=== PATIENT | female | born 1940 | race Caucasian/White ===

== ENCOUNTER 2018-11-13 11:32 | Emergency (ER) | payer MEDICARE, MEDICAID ==
[~2018-11-13] VITALS: Ht 152.4 cm; Wt 72.7 kg
[2018-11-13] MEDS ORDERED: GABA-845 PO (11:47)
[2018-11-13] MEDS ORDERED: OMEP40CA2 PO (11:47)
--- NOTE | 2018-11-13 12:14 | REP ---
Clinical: Syncope/near-syncopal episode. Comparison: None . Findings: The mediastinum and cardiac silhouette are stable and within normal limits for portable technique. The lung woods are clear without acute consolidation, effusion, or pneumothorax. Skeletal structures are intact. Impression: No acute cardiopulmonary process appreciated. Electronically Signed by Rebel Monae MD 11/13/2018 12:05 P
[2018-11-13 12:33] LABS: BASO # 0.1 10^3/uL (0.0-0.2); BASO % 0.4 % (0.0-1.0); EOS # 0.1 10^3/uL (0.0-0.5); HEMATOCRIT 33.8 % (36.0-47.0); HEMOGLOBIN 10.5 g/dl (12.0-15.5); LYMPH # 2.9 10^3/uL (1.5-5.0); LYMPH % 21.5 % (24.0-44.0); MEAN CORPUSCULAR HEMOGLOBIN 28.2 pg (27.0-33.0); MEAN CORPUSCULAR HGB CONC 31.1 g/dl (32.0-36.5); MEAN CORPUSCULAR VOLUME 90.6 fl (80.0-96.0); MONO # 0.9 10^3/uL (0.0-0.8); MONO % 6.4 % (0.0-5.0); NEUTROPHILS # 9.4 10^3/uL (1.5-8.5); NEUTROPHILS % 70.3 % (36.0-66.0); PLATELET COUNT, AUTOMATED 360 10^3/uL (150-450); RED BLOOD COUNT 3.73 10^6/uL (4.00-5.40); WHITE BLOOD COUNT 13.4 10^3/uL (4.0-10.0)
[2018-11-13 13:00] LABS: BLOOD UREA NITROGEN 13 MG/DL (7-18); CALCIUM LEVEL 8.8 MG/DL (8.8-10.2); CARBON DIOXIDE LEVEL 27 MEQ/L (21-32); CHLORIDE LEVEL 106 MEQ/L (98-107); CK-MB VALUE MASS < 1.0 NG/ML (<3.6); CPK CREATINE PHOSPHOKINASE 61 U/L (26-192); CREATININE FOR GFR 1.27 MG/DL (0.55-1.30); FREE T4 1.05 NG/DL (0.76-1.46); GLOMERULAR FILTRATION RATE 43.6 (>39); GLUCOSE, FASTING 104 MG/DL (70-100); MB/CK RELATIVE INDEX 1.64 (< OR =4); POTASSIUM SERUM 4.2 MEQ/L (3.5-5.1); SODIUM LEVEL 140 MEQ/L (136-145); TROPONIN I < 0.02 NG/ML (< 0.10)
[2018-11-13 13:15] VITALS: BP 106/53
--- NOTE | 2018-11-13 19:29 | ECGEPIP ---
[facility] - ED Test Date: 2018-11-13 Pat Name: CELE GRIER Department: Room: - Gender: Female [employer] Re[employer] Operator: : [id number] Requested By: Tabitha Díaz Order Number: [id number] Reading MD: Bruce Santana Measurements Intervals [place] Rate: 63 P: 23 [place]: 141 QRS: -4 QRSD: 81 T: 44 QT: 399 QTc: 411 Interpretive Statements SINUS RHYTHM NSTTW ABNORMALITIES NO PRIORS FOR COMPARISON Electronically Signed on 11-13-2018 19:29:25 EDT by Bruce Santana
== END 2018-11-13 14:06 | disposition left against medical advice (07) ==
LOC: EDBD 11:32 → M ED 11:32
DX: R55 Syncope and collapse (principal); I10 Essential (primary) hypertension; K21.9 Gastro-esophageal reflux disease without esophagitis; Z91.040 Latex allergy status; Z79.899 Other long term (current) drug therapy

== ENCOUNTER → 2021-02-20 | Outpatient (REF) | payer MEDICARE, MEDICAID ==
[~2021-02-20] MED LIST: ACET1TAB55 PO; ASPI81TA26 PO; ATOR1TAB19 PO; COLA100C5 PO; CVS1CHW13 PO; DICL5SOL3 TOP; DULO1CAP6 PO; ELIQ2.5T PO; ELIQ5TAB PO; GABA-283 PO; GABA600T4 PO; HYDR12.55 PO; LACT20EL PO; MECL1TAB31 PO; MIDO5TA PO; NEUR300C PO; OMEP-173 PO; OMEP40CA4 PO; ONDA-83 PO
== END ==
LOC: M LAB REF 15:46
PROVIDERS: ATTEND Specialist
DX: K59.00 Constipation, unspecified (principal); K62.5 Hemorrhage of anus and rectum; Z86.73 Personal history of transient ischemic attack (TIA), and cerebral infarction without residual deficits; Z86.711 Personal history of pulmonary embolism

== ENCOUNTER 2021-03-12 12:10 | Inpatient (IN) | payer MEDICARE, MEDICAID ==
[~2021-03-12] VITALS: Ht 221 cm; Wt 70.4 kg
[~2021-03-12 12:10] MED LIST changes: -CVS1CHW13 PO; -DICL5SOL3 TOP; -ELIQ2.5T PO; -GABA600T4 PO; -LACT20EL PO; -MECL1TAB31 PO; -MIDO5TA PO
[2021-03-12] MEDS ORDERED: NS 500 ML IV ONE (12:30)
[2021-03-12 12:42] LABS: BASO # 0.1 10^3/uL (0.0-0.2); BASO % 0.3 % (0.0-1.0); EOS # 0.1 10^3/uL (0.0-0.5); EOS % 0.3 % (0.0-3.0); HEMATOCRIT 35.3 % (36.0-47.0); HEMOGLOBIN 11.4 g/dl (12.0-15.5); LYMPH # 4.3 10^3/uL (1.5-5.0); LYMPH % 25.8 % (24.0-44.0); MEAN CORPUSCULAR HEMOGLOBIN 28.1 pg (27.0-33.0); MEAN CORPUSCULAR HGB CONC 32.3 g/dl (32.0-36.5); MEAN CORPUSCULAR VOLUME 86.9 fl (80.0-96.0); MONO # 0.9 10^3/uL (0.0-0.8); MONO % 5.5 % (2.0-8.0); NEUTROPHILS # 11.3 10^3/uL (1.5-8.5); NEUTROPHILS % 67.6 % (36.0-66.0); PLATELET COUNT, AUTOMATED 491 10^3/uL (150-450); RED BLOOD COUNT 4.06 10^6/uL (4.00-5.40); WHITE BLOOD COUNT 16.8 10^3/uL (4.0-10.0)
[2021-03-12] MEDS ORDERED: ISOVUE-370 76% 100ML VIAL As Ordered ONE (12:57)
[2021-03-12 13:06] LABS: INR 1.77; PROTHROMBIN TIME 21.1 SECONDS (12.7-14.5)
[2021-03-12 13:07] LABS: PARTIAL THROMBOPLASTIN TIME 49.7 SECONDS (25.9-37.0)
[2021-03-12] MEDS ORDERED: LIDOCAINE 2% 5ML JELLY UROJET TOP ONE (13:25)
[2021-03-12 13:29] LABS: BILIRUBIN,DIRECT 0.2 MG/DL (0.0-0.2); BILIRUBIN,TOTAL 0.5 MG/DL (0.2-1.0); CALCIUM LEVEL 8.6 MG/DL (8.8-10.2); CREATININE FOR GFR 1.25 MG/DL (0.55-1.30); FREE T4 1.31 NG/DL (0.76-1.46); POTASSIUM SERUM 2.7 MEQ/L (3.5-5.1); THYROID STIMULATING HORMONE 5.11 uIU/ML (0.358-3.740); TOTAL PROTEIN 7.6 GM/DL (6.4-8.2)
[2021-03-12] MEDS ORDERED: KCL 10MEQ/100ML SWI (KRUN) 10 MEQ in IV 1 EA IV ONE (13:30)
[2021-03-12] MEDS ORDERED: POTASSIUM CHLORIDE 10MEQ SR TABLET PO ONE (13:30)
[2021-03-12 13:40] LABS: MAGNESIUM LEVEL 1.3 MG/DL (1.8-2.4)
[2021-03-12 14:14] LABS: RSV AMPLIFICATION NEGATIVE (NEGATIVE)
[2021-03-12] MEDS ORDERED: MAG SULF 1GM/100ML (MAG RUN) 1 GM in IV 1 EA IV ONE ×2 (14:15→15:25)
[2021-03-12] MEDS ORDERED: ELIQ5TAB PO (15:31)
[2021-03-12] MEDS ORDERED: CVS1CHW13 PO (15:32)
[2021-03-12] MEDS ORDERED: HOME MED LIST COMPLETE! XX SCH (15:40)
[2021-03-12] MEDS ORDERED: **NOTE PATIENT COMMENT** MISC XX SCH (15:45)
[2021-03-12 21:37] LABS: CK-MB VALUE MASS < 1.0 NG/ML (<3.6); CPK CREATINE PHOSPHOKINASE 60 U/L (26-192); MB/CK RELATIVE INDEX 1.67 (< OR =4)
[2021-03-12] MEDS: APIXABAN 5 MG TAB (ELIQUIS) PO SCH (21:59)
[2021-03-12] MEDS: KCL 20MEQ IN D5/NS 1000ML 1,000 ML IV SCH (22:00)
[2021-03-13 06:24] LABS: HEMATOCRIT 29.9 % (36.0-47.0); HEMOGLOBIN 9.6 g/dl (12.0-15.5); MEAN CORPUSCULAR HEMOGLOBIN 28.4 pg (27.0-33.0); MEAN CORPUSCULAR HGB CONC 32.1 g/dl (32.0-36.5); MEAN CORPUSCULAR VOLUME 88.5 fl (80.0-96.0); PLATELET COUNT, AUTOMATED 400 10^3/uL (150-450); RED BLOOD COUNT 3.38 10^6/uL (4.00-5.40); WHITE BLOOD COUNT 9.3 10^3/uL (4.0-10.0)
[2021-03-13 06:48] LABS: CK-MB VALUE MASS 1.1 NG/ML (<3.6); MB/CK RELATIVE INDEX 1.93 (< OR =4)
[2021-03-13 07:08] LABS: ALBUMIN 2.5 GM/DL (3.2-5.2); ALT/SGPT 9 U/L (12-78); BILIRUBIN,TOTAL 0.5 MG/DL (0.2-1.0); BLOOD UREA NITROGEN 11 MG/DL (7-18); CALCIUM LEVEL 8.4 MG/DL (8.8-10.2); CARBON DIOXIDE LEVEL 25 MEQ/L (21-32); CHLORIDE LEVEL 101 MEQ/L (98-107); CREATININE FOR GFR 0.84 MG/DL (0.55-1.30); GLOMERULAR FILTRATION RATE > 60.0 (>39); GLUCOSE, FASTING 124 MG/DL (70-100); POTASSIUM SERUM 3.3 MEQ/L (3.5-5.1); SODIUM LEVEL 137 MEQ/L (136-145); TOTAL PROTEIN 6.6 GM/DL (6.4-8.2)
[2021-03-13] MEDS: KCL 20MEQ IN D5/NS 1000ML 1,000 ML IV SCH ×2 (07:25→16:25)
[2021-03-13] MEDS ORDERED: ELIQ5TAB PO (08:10)
[2021-03-13] MEDS ORDERED: LACT20EL PO (08:16)
[2021-03-13] MEDS: APIXABAN 5 MG TAB (ELIQUIS) PO SCH ×2 (09:00→19:50)
[2021-03-13] MEDS ORDERED: DULoxetine 30MG CAPSULE (CYMBALTA) PO SCH (09:00)
[2021-03-13] MEDS: OMEPRAZOLE 20 MG CAP PO SCH (09:00)
[2021-03-13] MEDS: ATORVASTATIN 10 MG TAB PO SCH (09:00)
[2021-03-13] MEDS ORDERED: POTASSIUM CHLORIDE 10MEQ SR TABLET PO ONE (10:00)
[2021-03-13 14:10] VITALS: BP 143/85
[2021-03-13 20:00] VITALS: BP 105/60
[2021-03-14] VITALS: BP 115/58
[2021-03-14] MEDS: KCL 20MEQ IN D5/NS 1000ML 1,000 ML IV SCH (00:17)
[2021-03-14 04:00] VITALS: BP 128/58
[2021-03-14 05:46] LABS: HEMATOCRIT 29.7 % (36.0-47.0); HEMOGLOBIN 9.1 g/dl (12.0-15.5); MEAN CORPUSCULAR HEMOGLOBIN 27.7 pg (27.0-33.0); MEAN CORPUSCULAR HGB CONC 30.6 g/dl (32.0-36.5); MEAN CORPUSCULAR VOLUME 90.3 fl (80.0-96.0); PLATELET COUNT, AUTOMATED 390 10^3/uL (150-450); RED BLOOD COUNT 3.29 10^6/uL (4.00-5.40); WHITE BLOOD COUNT 7.3 10^3/uL (4.0-10.0)
[2021-03-14 06:13] LABS: ALBUMIN 2.2 GM/DL (3.2-5.2); ALT/SGPT 11 U/L (12-78); BILIRUBIN,TOTAL 0.4 MG/DL (0.2-1.0); BLOOD UREA NITROGEN 5 MG/DL (7-18); CALCIUM LEVEL 8.2 MG/DL (8.8-10.2); CARBON DIOXIDE LEVEL 24 MEQ/L (21-32); CHLORIDE LEVEL 111 MEQ/L (98-107); CREATININE FOR GFR 0.81 MG/DL (0.55-1.30); GLOMERULAR FILTRATION RATE > 60.0 (>39); GLUCOSE, FASTING 111 MG/DL (70-100); MAGNESIUM LEVEL 1.5 MG/DL (1.8-2.4); POTASSIUM SERUM 3.9 MEQ/L (3.5-5.1); SODIUM LEVEL 142 MEQ/L (136-145)
[2021-03-14 07:56] VITALS: BP_SYST 133; BP_SYST 153; BP_DIAS 59; BP_DIAS 62; BP_DIAS 68
[2021-03-14 08:00] VITALS: BP 143/86
[2021-03-14] MEDS ORDERED: MAG SULF 1GM/100ML (MAG RUN) 1 GM in IV 1 EA IV ONE (08:00)
[2021-03-14] MEDS: ATORVASTATIN 10 MG TAB PO SCH (08:10)
[2021-03-14] MEDS: APIXABAN 5 MG TAB (ELIQUIS) PO SCH (08:10)
[2021-03-14] MEDS: OMEPRAZOLE 20 MG CAP PO SCH (08:17)
== END 2021-03-14 11:04 | disposition home or self-care (01) | DRG 312 ==
LOC: M ED 12:10 → M ED INP 12:11 → OBSVTOIN 03-13 09:06 → ENRESERV 03-13 11:45 → M PCU 03-13 13:58
PROVIDERS: ADMIT Family Medicine; ATTEND Family Medicine
DX: I95.1 Orthostatic hypotension (principal); E78.5 Hyperlipidemia, unspecified; E87.6 Hypokalemia; E83.42 Hypomagnesemia; Z79.01 Long term (current) use of anticoagulants; Z79.899 Other long term (current) drug therapy; Z86.711 Personal history of pulmonary embolism; R94.31 Abnormal electrocardiogram [ECG] [EKG]; R63.4 Abnormal weight loss; F32.A Depression, unspecified; R63.8 Other symptoms and signs concerning food and fluid intake; Z86.73 Personal history of transient ischemic attack (TIA), and cerebral infarction without residual deficits

== ENCOUNTER → 2021-04-30 | Outpatient (CLI) | payer MEDICARE, MEDICAID ==
[~2021-04-30] MED LIST changes: +CVS1CHW13 PO; +DICL5SOL3 TOP; +ELIQ2.5T PO; +GABA600T4 PO; +LACT20EL PO; +MECL1TAB31 PO; +MIDO5TA PO
== END ==
LOC: M LABSMTC 09:09
PROVIDERS: ATTEND Anesthesiology
DX: Z01.812 Encounter for preprocedural laboratory examination (principal); Z20.822 Contact with and (suspected) exposure to COVID-19

== ENCOUNTER → 2021-05-07 | Outpatient (CLI) | payer MEDICARE, MEDICAID | LOC: M LABSMTC 09:06 | PROVIDERS: ATTEND Anesthesiology | DX: Z01.812 Encounter for preprocedural laboratory examination (principal); Z20.822 Contact with and (suspected) exposure to COVID-19 ==

== ENCOUNTER 2021-05-11 09:46 | Day surgery (SDC) | payer MEDICARE, MEDICAID ==
[~2021-05-11] VITALS: Ht 160 cm; Wt 73.0 kg
[~2021-05-11 09:46] MED LIST changes: +NS 1,000 ML IV ONE
[2021-05-11] MEDS ORDERED: fentaNYL 100 MCG/2 ML INJECTION As Ordered ONE (11:13)
[2021-05-11] MEDS ORDERED: propofoL 200 MG/20 ML VIAL As Ordered ONE (11:13)
[2021-05-11] MEDS ORDERED: LIDOCAINE 2% 100MG/5ML SDV (FOR ANES.) As Ordered ONE (11:13)
[2021-05-11 12:20] VITALS: BP 147/72
== END 2021-05-11 12:38 | disposition home or self-care (01) ==
LOC: M OPP 09:46
PROVIDERS: ATTEND Internal Medicine Gastroenterology
DX: D50.9 Iron deficiency anemia, unspecified (principal); K31.7 Polyp of stomach and duodenum; Z79.899 Other long term (current) drug therapy; Z91.040 Latex allergy status; Z86.711 Personal history of pulmonary embolism; Z86.73 Personal history of transient ischemic attack (TIA), and cerebral infarction without residual deficits
CPT/HCPCS: 43239; 43251; 88305; J3010

== ENCOUNTER → 2021-05-25 | Outpatient (REF) | payer MEDICARE, MEDICAID ==
[~2021-05-25] MED LIST changes: -NS 1,000 ML IV ONE
[2021-05-25 13:34] LABS: APPEARANCE, URINE HAZY (CLEAR); BACTERIA, URINE AUTO NEGATIVE (NEGATIVE); BILIRUBIN, URINE AUTO NEGATIVE (NEGATIVE); BLOOD, URINE BLOOD NEGATIVE (NEGATIVE); COLOR, URINE YELLOW (YELLOW); GLUCOSE, URINE (UA) AUTO NEGATIVE (NEGATIVE); KETONE, URINE AUTO NEGATIVE (NEGATIVE); LEUKOCYTE ESTERASE, URINE AUTO NEGATIVE (NEGATIVE); NITRITE, URINE AUTO NEGATIVE (NEGATIVE); PROTEIN, URINE AUTO NEGATIVE (NEGATIVE); RBC, URINE AUTO 0 /HPF (0-3); SPECIFIC GRAVITY URINE AUTO 1.016 (1.002-1.035); SQUAMOUS EPITHELIAL CELL UR AU 2 /HPF (0-6); UROBILINOGEN, URINE AUTO 0.2 mg/dL (0.0-2.0); WBC, URINE AUTO 1 /HPF (0-3)
== END ==
LOC: M SMT 12:39
PROVIDERS: ATTEND Urology
DX: R93.41 Abnormal radiologic findings on diagnostic imaging of renal pelvis, ureter, or bladder (principal)